=== PATIENT | male | born 1975 | race Caucasian/White ===

== ENCOUNTER → 2020-12-08 | Outpatient (CLI) | payer OTHER ==
[2020-12-08 11:32] LABS: BUN/CREATININE RATIO 9 (0-10)
[2020-12-11 11:11] LABS: CHOLESTEROL, TOTAL 133 mg/dL (100-199); HDL SIZE 8.9 nm (>=9.2); HDL-C 42 mg/dL (>39); HDL-P (TOTAL) 30.6 umol/L (>=30.5); LARGE HDL-P 3.8 umol/L (>=4.8); LARGE VLDL-P 5.4 nmol/L (<=2.7); LDL SIZE 20.7 nm (>20.5); LDL SIZE 20.7 nm (>=20.8); LDL-C 72 mg/dL (0-99); LDL-P 789 nmol/L (<1000); LP-IR SCORE 62 (<=45); SMALL LDL-P 256 nmol/L (<=527); TRIGLYCERIDES 105 mg/dL (0-149); VLDL SIZE 51.6 nm (<=46.6)
== END ==
LOC: LAB 10:27
PROVIDERS: Emergency Medicine
DX: E11.9 Type 2 diabetes mellitus without complications (principal); E78.2 Mixed hyperlipidemia; I10 Essential (primary) hypertension
CPT/HCPCS: 36415; 80053; 84550

== ENCOUNTER → 2021-03-20 | Outpatient (CLI) | payer OTHER | LOC: RAD 11:01 | DX: M54.5 Low back pain (principal) | CPT/HCPCS: 72110; 72220 ==

== ENCOUNTER → 2022-01-31 | Outpatient (CLI) | payer OTHER | LOC: KOH-I 13:30 | DX: R22.41 Localized swelling, mass and lump, right lower limb (principal); M79.661 Pain in right lower leg; L53.9 Erythematous condition, unspecified | CPT/HCPCS: 93971 ==

== ENCOUNTER → 2022-01-31 | Outpatient (CLI) | payer OTHER ==
[2022-01-31 15:00] LABS: HEMOGLOBIN 14.1 gm/dl (14.0-17.5); RED BLOOD COUNT 4.92 M/UL (4.20-5.50); WHITE BLOOD COUNT 8.1 K/UL (4.5-11.0)
[2022-01-31 15:21] LABS: BUN/CREATININE RATIO 17 (0-10)
== END ==
LOC: LAB 14:40
PROVIDERS: Nurse Practitioner
DX: R22.41 Localized swelling, mass and lump, right lower limb (principal); M79.661 Pain in right lower leg; L53.9 Erythematous condition, unspecified
CPT/HCPCS: 36415; 80053; 85025; 85379